=== PATIENT | male | born 1970 | race Caucasian/White ===

== ENCOUNTER 2017-11-18 15:48 | Emergency (ER) | payer BC ==
[2017-11-18] MEDS: THIAMINE HCL 100 MG, MVI, ADULT NO.1 WITH VIT K 10 ML, FOLIC ACID 5 MG in 0.9 % SODIUM ... IV SCH ×4 (16:00)
[2017-11-18 16:06] LABS: BASOPHILS % 0.5 (0.0-1.5); EOSINOPHILS % 1.8 % (0.0-6.8); MEAN CORPUSCULAR HEMOGLOBIN 32.3 pg (28.0-34.0); MONOCYTES % 2.9 % (0.0-11.0); NEUTROPHILS # 8.7 # k/uL (1.4-7.7)
[2017-11-18] MEDS: THIAMINE HCL 100 MG/ML 2ML VIAL ONE (16:08)
[2017-11-18] MEDS: MVI, ADULT NO.1 WITH VIT K 10 ML VIAL IV ONE (16:09)
[2017-11-18] MEDS: 0.9 % SODIUM CHLORIDE 1,000 ML IV ONE (16:09)
[2017-11-18] MEDS: FOLIC ACID 5 MG/1 ML ONE (16:09)
--- NOTE | 2017-11-18 17:45 | ED Physician Documentation ---
General Adult - HISTORIAN Historian: other ([facility] personnel) - HPI Stated Complaint: Sent From [facility]- "Fever" Chief Complaint: General Adult Additional Information: Called by [facility]. New admission, Mr. Bustamante, had fever of 103, wished investigated. Onset: hours (1) Timing: gone now Severity: moderate Modifying Factors: alcohlism Context: intoxicated Further Comments: no Last known Well Code/Unknown Code: Unknown - ROS CONST: no problems EYES/ENT: none CVS/RESP: none GI/: none MS/SKIN/LYMPH: none NEURO/PSYCH: denies: headache, numbness - PAST HX Past History: hypertension, other (alcoholism x 20 years) Other History: other (depression) Surgeries/Procedures: none Immunizations: referred to PCP Allergies/Adverse Reactions: Allergies Allergy/AdvReac Type Severity Reaction Status Date / Time No Known Allergies Allergy Unverified 11/18/17 15:54 Home Medications: Ambulatory Orders Medication Instructions Recorded Disulfiram [Antabuse] 500 mg PO DAILY 11/18/17 Hydrochlorothiazide 25 mg PO DAILY 11/18/17 Lisinopril [Zestril] 40 mg PO DAILY 11/18/17 Paroxetine HCl [Paxil] 40 mg PO DAILY 11/18/17 - SOCIAL HX Smoking History: cigarettes Alcohol Use: heavy Drug Use: none - FAMILY HX Family History: No - VITAL SIGNS Vital Signs: Vital Signs Temp Pulse Resp BP Pulse Ox 98.3 F 80 18 118/66 99 11/18/17 15:50 11/18/17 15:50 11/18/17 15:50 11/18/17 15:50 11/18/17 15:50 - REVIEWED ASSESSMENTS Nursing Assessment Reviewed: Yes Vitals Reviewed: Yes Progress - Results/Orders Results/Orders: cbc, cmp, cxr ordered - Progress Progress: pt. given banana bag in ER Critical Care Note - Critical Care Note Total Time (mins): 0 ED Results Lab/Radiology - Lab Results Lab Results: Lab Results 11/18/17 11/18/17 16:00 16:00 WBC 12.70 K/ul H K/ul (4.00-12.00) RBC 4.43 M/ul M/ul (3.90-5.20) Hgb 14.3 g/dL g/dL (12.0-18.0) Hct 42.1 % % (37.0-53.0) MCV 95.0 fl fl (80.0-100.0) MCH 32.3 pg pg (28.0-34.0) MCHC 34.0 g/dL g/dL (30.0-36.0) RDW 13.5 % % (11.3-14.3) Plt Count 338 K/mm3 K/mm3 (130-400) Neut % (Auto) 68.8 % % (39.0-79.0) Lymph % (Auto) 24.2 % % (16.0-50.0) Conway % (Auto) 2.9 % % (0.0-11.0) Eos % (Auto) 1.8 % % (0.0-6.8) Baso % (Auto) 0.5 (0.0-1.5) Neut # (Auto) 8.7 # k/uL H # k/uL (1.4-7.7) Lymph # (Auto) 3.1 # k/uL # k/uL (0.6-4.0) Conway # (Auto) 0.4 # k/uL # k/uL (0.0-0.9) Eos # (Auto) 0.2 # k/uL # k/uL (0.0-0.6) Baso # (Auto) 0.1 # k/uL # k/uL (0.0-0.5) Reactive Lymphs % 1.8 % % (0.0-5.0) Reactive Lymphs # 0.2 # k/uL # k/uL (0.0-0.8) Sodium 146 mmol/L H mmol/L (136-145) Potassium 4.2 mmol/L mmol/L (3.5-5.1) Chloride 107 mmol/L mmol/L (98-107) Carbon Dioxide 24 mmol/L mmol/L (22-30) BUN 37 mg/dL H mg/dL (9-20) Creatinine 1.90 mg/dL H mg/dL (0.66-1.25) Estimated Creat Clear 74 Est GFR ( Amer) 49 L (60 - ) Est GFR (Non-Af Amer) 41 L (60 - ) Glucose 78 mg/dL mg/dL (74-106) Calcium 9.2 mg/dL mg/dL (8.4-10.2) Total Bilirubin 0.5 mg/dL mg/dL (0.2-1.3) AST 31 U/L U/L (15-46) ALT 35 U/L U/L (13-69) Alkaline Phosphatase 90 U/L U/L (38-126) Total Protein 7.5 g/dL g/dL (6.3-8.2) Albumin 4.2 g/dL g/dL (3.5-5.0) - Radiology Radiology Impressions: cxr neg - Orders Orders: ED Orders Category Date Time Status Place IV Lock 1T Care 11/18/17 15:58 Completed CHEST 1VIEW [RAD] Routine Exams 11/18/17 Ordered CBC/PLATELET/DIFF Routine Lab 11/18/17 16:00 Completed CMP Routine Lab 11/18/17 16:00 Completed URINALYSIS Routine Lab 11/18/17 16:00 Ordered 0.9 % Sodium Chloride [Normal Saline] 1,000 ml Med 11/18/17 16:03 Discontinued IV .STK-MED Folic Acid [Folvite] Med 11/18/17 16:03 Discontinued 5 mg .ROUTE .STK-MED ONE Mvi, Adult No.1 with Vit K [M.v.i. Adult] Med 11/18/17 16:03 Discontinued 10 ml IV .STK-MED ONE Thiamine HCl Med 11/18/17 16:03 Discontinued 200 mg .ROUTE .STK-MED ONE Thiamine HCl 100 mg Med 11/18/17 16:00 Ordered Mvi, Adult No.1 with Vit K [M.v.i. Adult] 10 ml Folic Acid [Folvite] 5 mg 0.9 % Sodium Chloride [Normal Saline] 1,000 ml IV Q8 General Adult Physical Exam - PHYSICAL EXAM GENERAL APPEARANCE: pt. passed out in ER from ETOH EENT: eye inspection normal, ENT inspection normal, pharynx normal, DAFNE, nystagmus NECK: normal inspection, thyroid normal, supple RESPIRATORY: no resp distress, chest non-tender, breath sounds normal CVS: reg rate & rhythm, heart sounds normal, equal pulses, no murmur ABDOMEN: soft, no organomegaly, normal bowel sounds, no abdominal bruit, no distension, non-tender BACK: normal inspection, no CVA tenderness SKIN: warm/dry EXTREMITIES: non-tender, normal range of motion, no evidence of injury, no edema NEURO: other (intoxicated) Discharge Clincal Impression: Dehydration Alcohol intoxication Qualifiers: Complication of substance-induced condition: uncomplicated Qualified Code(s): F10.920 - Alcohol use, unspecified with intoxication, uncomplicated Referrals: Primary Doctor,No [Primary Care Provider] - 2 Days Comments: Discharged to [facility] for alcohol detox. Condition: Stable Disposition: 01 HOME, SELF-CARE Decision to Admit: NO Decision Time: 17:44
[2017-11-18 18:27] VITALS: BP 130/49
--- NOTE | 2017-11-18 19:09 | Diagnostic Imaging Report ---
TWAN TATUM [facility] [id number] [facility] [address] [place] [address]. [id number] Report Submission Date: Nov 18, 2017 4:44:40 PM LEATHER SEASONER Patient Study Name: MILKA BINGHAM Date: Nov 18, 2017 4:17:27 PM LEATHER SEASONER Modality Type: DX Gender: M Description: CHEST : 70 Institution: [facility] Physician: TWAN TATUM Examination: Portable chest History: Evaluate lungs. FEVER (Hx) Comparison exam: None available. Findings: Single view of the chest demonstrates a normal cardiac and mediastinal silhouette. Lung berkowitz without focal infiltrate. No blunting of the costophrenic margins. Osseous structures are appropriate for age. Impression: No acute pulmonary process. Electronically signed on Nov 18, 2017 4:44:40 PM LEATHER SEASONER by: Sonido RAJAN
== END 2017-11-18 17:58 | disposition home or self-care (01) ==
LOC: ED 15:48
DX: E86.0 Dehydration (principal); F10.920 Alcohol use, unspecified with intoxication, uncomplicated; I10 Essential (primary) hypertension; F32.9 Major depressive disorder, single episode, unspecified
CPT/HCPCS: 71045; 80053; 85025; J3411; J3490; J7030; 96360; 96361; 99283; S1016